=== PATIENT | female | born 2000 | race Caucasian/White ===

== ENCOUNTER 2020-08-20 12:33 | Emergency (ER) | payer SELFPAY ==
[~2020-08-20] VITALS: Ht 152.4 cm; Wt 47.6 kg
[2020-08-20 13:28] LABS: BASOPHILS % 0.4 % (0.0-1.0); EOSINOPHILS # (AUTO) 0.1 (0.0-0.4); EOSINOPHILS % 1.1 % (0.0-6.0); HEMATOCRIT 44.2 % (34.2-44.1); HEMOGLOBIN 15.1 g/dL (12.0-16.0); LYMPHOCYTES # (AUTO) 1.8 (1.0-3.2); LYMPHOCYTES % 25.8 % (18.0-39.1); MEAN CORPUSCULAR HEMOGLOBIN 31.3 pg (28-32); MEAN CORPUSCULAR HGB CONC 34.2 g/dL (31-35); MEAN CORPUSCULAR VOLUME 91.7 fL (81-99); MONOCYTES # (AUTO) 0.6 (0.2-0.8); NEUTROPHILS # (AUTO) 4.6 (2.1-6.9); NEUTROPHILS % 64.4 % (38.7-80.0); PLATELET COUNT 295 x10e3/uL (140-360); RED BLOOD COUNT 4.82 x10e6/uL (3.6-5.1); RED CELL DISTRIBUTION WIDTH 12.2 % (11.7-14.4)
[2020-08-20 13:31] LABS: BILIRUBIN,URINE NEGATIVE (NEGATIVE); CLARITY,URINE CLEAR (CLEAR); COLOR,URINE YELLOW (YELLOW); KETONES,URINE NEGATIVE (NEGATIVE); LEUKOCYTE ESTERASE ,URINE NEGATIVE (NEGATIVE); NITRITE,URINE NEGATIVE (NEGATIVE); PREGNANCY TEST, URINE NEGATIVE (NEGATIVE); PROTEIN,URINE DIPSTICK NEGATIVE (NEGATIVE); URINE UROBILINOGEN 0.2 mg/dL (0.2 - 1)
[2020-08-20 13:39] LABS: BACTERIA,URINE RARE /HPF; EPITHELIAL CELLS,URINE FEW /LPF; MUCUS,URINE FEW (RARE); RBC,URINE 0-5 /HPF (0-5); WBC,URINE (MAN) 0-5 /HPF (0-5)
[2020-08-20] MEDS ORDERED: SODIUM CHLORIDE 0.9% 1000ML 1,000 ML ONE (13:39)
[2020-08-20] MEDS ORDERED: ONDANSETRON HCL INJ 2MG/ML 2ML 2 MG/ML VIAL IV NR (14:00)
[2020-08-20] MEDS ORDERED: KETOROLAC TROMETHAMINE 30 MG/ML VIAL IV NR (14:00)
[2020-08-20 14:23] LABS: ALANINE AMINOTRANSFERASE 10 IU/L (0-55); ALBUMIN 4.3 g/dL (3.5-5.0); ALBUMIN/GLOBULIN RATIO 1.4 (0.8-2.0); ALKALINE PHOSPHATASE 54 IU/L (40-150); ANION GAP 12.9 mmol/L (8-16); BLOOD UREA NITROGEN 7 mg/dL (7-26); BUN/CREATININE RATIO 9 (6-25); CALCIUM 9.4 mg/dL (8.4-10.2); CARBON DIOXIDE 25 mmol/L (22-29); CHLORIDE 103 mmol/L (98-107); CREATININE, SERUM 0.79 mg/dL (0.57-1.11); EST GLOMERULAR FILTRATION RATE > 60 ML/MIN (60-); GLUCOSE 88 mg/dL (74-118); POTASSIUM 3.9 mmol/L (3.5-5.1); SODIUM 137 mmol/L (136-145)
[2020-08-20] MEDS ORDERED: PANTOPRAZOLE SO40 MG PO (15:24)
[2020-08-20 15:43] VITALS: BP 127/62
== END 2020-08-20 15:52 | disposition home or self-care (01) ==
LOC: ER 13:20
DX: R10.13 Epigastric pain (principal); R11.2 Nausea with vomiting, unspecified
CPT/HCPCS: 36415; 80053; 81001; 81025; 83690; 85025; 99284; J1885; J2405; J7030

== ENCOUNTER 2022-11-13 19:35 | Emergency (ER) | payer SELFPAY ==
[~2022-11-13] VITALS: Ht 152.4 cm; Wt 49.9 kg
[~2022-11-13 19:35] MED LIST: PANTOPRAZOLE SO40 MG PO
[2022-11-13] MEDS ORDERED: KETOROLAC TROMETHAMINE 30 MG/ML VIAL IV STA (20:24)
[2022-11-13] MEDS ORDERED: ONDANSETRON HCL INJ 2MG/ML 2ML 2 MG/ML VIAL IV STA (20:24)
[2022-11-13] MEDS ORDERED: SODIUM CHLORIDE FLUSH 10 ML SYR IV PRN (20:30)
[2022-11-13] MEDS ORDERED: SODIUM CHLORIDE 0.9% 1000ML 1,000 ML IV SCH (20:30)
[2022-11-13 20:51] LABS: BASOPHILS % 0.3 % (0.0-1.0); EOSINOPHILS # (AUTO) 0.1 (0.0-0.4); EOSINOPHILS % 1.1 % (0.0-6.0); HEMATOCRIT 41.4 % (34.2-44.1); LYMPHOCYTES # (AUTO) 2.6 (1.0-3.2); LYMPHOCYTES % 41.3 % (18.0-39.1); MEAN CORPUSCULAR HEMOGLOBIN 31.2 pg (28-32); MEAN CORPUSCULAR HGB CONC 31.4 g/dL (31-35); MEAN CORPUSCULAR VOLUME 99.3 fL (81-99); MONOCYTES # (AUTO) 0.4 (0.2-0.8); NEUTROPHILS # (AUTO) 3.1 (2.1-6.9); NEUTROPHILS % 50.1 % (38.7-80.0); PLATELET COUNT 313 x10e3/uL (140-360); RED BLOOD COUNT 4.17 x10e6/uL (3.6-5.1); RED CELL DISTRIBUTION WIDTH 11.3 % (11.7-14.4)
[2022-11-13 20:55] LABS: AMPHETAMINES SCREEN,URINE NEGATIVE (NEGATIVE); BENZODIAZEPINES SCREEN,URINE NEGATIVE (NEGATIVE); CLARITY,URINE CLEAR (CLEAR); COLOR,URINE YELLOW (YELLOW); KETONES,URINE NEGATIVE (NEGATIVE); LEUKOCYTE ESTERASE ,URINE NEGATIVE (NEGATIVE); NITRITE,URINE NEGATIVE (NEGATIVE); PHENCYCLIDINE SCREEN,URINE NEGATIVE (NEGATIVE); PROTEIN,URINE DIPSTICK NEGATIVE (NEGATIVE); URINE UROBILINOGEN 0.2 mg/dL (0.2 - 1)
[2022-11-13 20:56] LABS: BACTERIA,URINE FEW /HPF; EPITHELIAL CELLS,URINE FEW /LPF; INR 0.96; RBC,URINE 0-5 /HPF (0-5); WBC,URINE (MAN) 0-5 /HPF (0-5)
[2022-11-13 20:57] LABS: PARTIAL THROMBOPLASTIN TIME 29.3 seconds (23.8-35.5)
[2022-11-13 21:04] LABS: LIPASE 38 U/L (8-78)
[2022-11-13 21:06] LABS: ALBUMIN 3.9 g/dL (3.5-5.0); ALBUMIN/GLOBULIN RATIO 1.1 (0.8-2.0); ANION GAP 12.6 mmol/L (8-16); CALCIUM 9.3 mg/dL (8.4-10.2); CREATININE, SERUM 0.76 mg/dL (0.57-1.11); POTASSIUM 3.6 mmol/L (3.5-5.1)
[2022-11-13 21:13] LABS: TRANSITIONAL EPI CELLS,URINE FEW
[2022-11-13] MEDS ORDERED: IOPAMIDOL 370 MG/ML 100 ML INFUS..BTL INJ ONE (22:21)
== END 2022-11-13 23:20 | disposition home or self-care (01) ==
LOC: ER 19:39
DX: N93.8 Other specified abnormal uterine and vaginal bleeding (principal); N94.6 Dysmenorrhea, unspecified; R10.30 Lower abdominal pain, unspecified; F12.10 Cannabis abuse, uncomplicated
CPT/HCPCS: 36415; 74177; 76830; 76856; 80053; 80307; 81001; 83690; 84702; 85025; 85610; 85730; 99283; J1885; J2405; J7030; Q9967